=== PATIENT | male | born 1990 | race Caucasian/White ===

== ENCOUNTER 2019-05-24 10:10 | Emergency (ER) | payer MEDICAID ==
[~2019-05-24] VITALS: Ht 175.3 cm; Wt 79.4 kg
[2019-05-24 10:21] VITALS: BP_SYST 116
--- NOTE | 2019-05-24 10:22 | NUR ---
Patient to ER bed 7 to gown for evaluation. Side rails up. Report given to Oriana BORGES.
--- NOTE | 2019-05-24 11:10 | NUR ---
ER Dr. WEINBERG at bedside examining patient.
--- NOTE | 2019-05-24 11:15 | NUR ---
Pt presents to for med refill
--- NOTE | 2019-05-24 11:35 | NUR ---
Patient given written and verbal discharge instructions and verbalizes understanding. ER MD discussed with patient the results and treatment provided. Patient in stable condition. ID arm band removed. Rx of Prozac given. Patient educated on pain management and to follow up with PMD. Pain Scale 0. Opportunity for questions provided and answered. Medication side effect fact sheet provided.
[2019-05-24 11:39] VITALS: BP_SYST 116
== END 2019-05-24 11:35 | disposition home or self-care (01) ==
LOC: SED 10:10
DX: Z76.0 Encounter for issue of repeat prescription (principal); F41.9 Anxiety disorder, unspecified
CPT/HCPCS: 99283